=== PATIENT | male | born 1965 | race Hispanic/Latino ===

== ENCOUNTER 2016-09-24 13:43 | Emergency (ER) | payer OTHER ==
[~2016-09-24] VITALS: Ht 182.9 cm; Wt 142.9 kg
[2016-09-24] MEDS ORDERED: NS IV 1000 ML 1,000 ML IV ONE (15:44)
--- NOTE | 2016-09-24 15:53 | ED General ---
General Chief Complaint: -Male Stated Complaint: BACK PAIN//EXCESSIVE URINATING Nursing Triage Note: Pt reports right lower back discomfort since approx feb 2016, pt reports worsening over the last few months and pain unbearable. pt reports frequent episodes of incontinence starting this tuesday. pt reports penile/scotal edema for approx 1 week. pt reports excessive thirst and unable to satisfy it. pt here on vacation visiting family from [place]. Nursing Sepsis Screen: No Definite Risk Source of Information: Patient, Family Exam Limitations: No Limitations History of Present Illness Time Seen by Provider: 15:37 Initial Comments Here with a variety of complaints but includes right lower back pain, markedly increased thirst, markedly increased urination and has recently over the last 2 days had incontinence. Also complains of swelling of the head of the penis which is new. He states he was even unable to retract the foreskin of his penis area and also reports inability to have sexual activity due to the pain of this. Told that he was prediabetic about 7 years ago and has had persistent poor diet and obesity since that time. Strong family history of diabetes and hypertension. States that he works all the time and so drinks energy drinks and Powerade all the time. He is here visiting family from [place], [place]. Timing/Duration: 1 Week Severity: Moderate Associated Systoms: No Chest Pain, No Cough, No Fever/Chills, No Nausea/ Vomiting, No Shortness of Air, No Weakness Allergies and Home Medications Allergies Coded Allergies: meperidine (Verified Allergy, Unknown, 09/24/16) Home Medications No Active Prescriptions or Reported Meds Constitutional: see HPI EENTM: no symptoms reported Respiratory: no symptoms reported Cardiovascular: no symptoms reported Gastrointestinal: No abdominal pain, No nausea, No vomiting Genitourinary: frequency, incontinence Musculoskeletal: see HPI, back pain Skin: no symptoms reported Psychiatric/Neurological: No Symptoms Reported All Other Systems Reviewed Negative Unless Noted: Yes Past Xlvvffv-Ltzkom-Onjura Hx Patient Social History Alcohol Use: Denies Use Recreational Drug Use: No Smoking Status: Former Smoker Recent Foreign Travel: No Contact w/Someone Who Travel: No Recent Infectious Disease Expo: No Recent Hopitalizations: No Immunizations Up To Date Tetanus Booster (TDap): Unknown Seasonal Allergies Seasonal Allergies: No Surgeries HX Surgeries: No Respiratory Respiratory Disorders: Sleep Apnea Endocrine Hx Endocrine Disorders: Yes Endocrine Disorders: Diabetes, Non-Insulin dep Reviewed Nursing Assessment Reviewed/Agree w Nursing PMH: Yes Family Medical History Significant Family History: No Pertinent Family Hx Physical Exam Vital Signs Vital Sign - Last 12Hours 09/24/16 14:13 Temp 97.0 Pulse 85 Resp 18 B/P (MAP) 138/76 Pulse Ox 96 O2 Delivery Room Air Capillary Refill : Less Than 3 Seconds General Appearance: No Apparent Distress, WD/WN, Anxious, Obese HEENT: PERRL/EOMI, Pharynx Normal Neck: Non Tender, Supple Respiratory: Lungs Clear, Normal Breath Sounds Cardiovascular: Regular Rate, Rhythm, No Murmur Gastrointestinal: Non Tender, Soft, Other (obese. Large lipoma to the right side of the mid abdomen.) Genital/Rectal: Other (swollen glans of the penis. I was able to retract foreskin over the glans and then retract back forward. Erythema noted to the glans.) Back: No CVA Tenderness, Other (tender to the mid upper lumbar spine and lateral on the right side.) Extremity: Normal Range of Motion, Non Tender, No Calf Tenderness Neurologic/Psychiatric: Alert, Oriented x3, No Motor/Sensory Deficits, Normal Mood/Affect, Other (able to stand without difficulty. Walks without difficulty. Equal strength bilateral.) Skin: Normal Color, Warm/Dry Progress/Results/Core Measures Results/Orders Lab Results Laboratory Tests Test 09/24/16 15:45 09/24/16 16:11 Range/Units Urine Color YELLOW Urine Clarity CLEAR Urine pH 6 5-9 Urine Specific [place] 1.020 1.016-1.022 Urine Protein 1+ H NEGATIVE Urine Glucose (UA) 4+ H NEGATIVE Urine Ketones 1+ H NEGATIVE Urine Nitrite NEGATIVE NEGATIVE Urine Bilirubin NEGATIVE NEGATIVE Urine Urobilinogen NORMAL NORMAL MG/DL Urine Leukocyte Esterase NEGATIVE NEGATIVE Urine RBC (Auto) NEGATIVE NEGATIVE Urine RBC RARE /HPF Urine WBC NONE /HPF Urine Squamous Epithelial Cells RARE /HPF Urine Crystals NONE /LPF Urine Bacteria NEGATIVE /HPF Urine Casts NONE /LPF Urine Mucus NEGATIVE /LPF Urine Culture Indicated NO White Blood Count 12.8 H 4.3-11.0 10^3/uL Red Blood Count 5.24 4.35-5.85 10^6/uL Hemoglobin 15.8 13.3-17.7 G/DL Hematocrit 45 40-54 % Mean Corpuscular Volume 86 80-99 FL Mean Corpuscular Hemoglobin 30 25-34 PG Mean Corpuscular Hemoglobin Concent 35 32-36 G/DL Red Cell Distribution Width 12.9 10.0-14.5 % Platelet Count 281 130-400 10^3/uL Mean Platelet Volume 10.2 7.4-10.4 FL Neutrophils (%) (Auto) 65 42-75 % Lymphocytes (%) (Auto) 27 12-44 % Monocytes (%) (Auto) 6 0-12 % Eosinophils (%) (Auto) 3 0-10 % Basophils (%) (Auto) 0 0-10 % Neutrophils # (Auto) 8.3 H 1.8-7.8 X 10^3 Lymphocytes # (Auto) 3.4 1.0-4.0 X 10^3 Monocytes # (Auto) 0.7 0.0-1.0 X 10^3 Eosinophils # (Auto) 0.4 H 0.0-0.3 10^3/uL Basophils # (Auto) 0.0 0.0-0.1 10^3/uL Sodium Level 137 135-145 MMOL/L Potassium Level 4.0 3.6-5.0 MMOL/L Chloride Level 103 98-107 MMOL/L Carbon Dioxide Level 21 21-32 MMOL/L Anion Gap 13 5-14 MMOL/L Blood Urea Nitrogen 13 7-18 MG/DL Creatinine 0.82 0.60-1.30 MG/DL Estimat Glomerular Filtration Rate > 60 BUN/Creatinine Ratio 16 0-20 Glucose Level 303 H 70-105 MG/DL Glucometer 285 H 70-110 MG/DL Calcium Level 9.3 8.5-10.1 MG/DL Total Bilirubin 0.5 0.1-1.0 MG/DL Aspartate Amino Transf (AST/SGOT) 22 5-34 U/L Alanine Aminotransferase (ALT/SGPT) 43 0-55 U/L Alkaline Phosphatase 118 40-136 U/L Total Protein 7.6 6.4-8.2 GM/DL Albumin 4.2 3.2-4.5 GM/DL My Orders Orders - CRISTINA ANDRES MD Cbc With Automated Diff (09/24/16 15:44) Comprehensive Metabolic Panel (09/24/16 15:44) Ua Culture If Indicated (09/24/16 15:44) Saline Lock/Iv-Start (09/24/16 15:44) Ns Iv 1000 Ml (Sodium Chloride 0.9%) (09/24/16 15:44) Accucheck Stat ONCE (09/24/16 15:44) Ct Lumbar Spine Wo (09/24/16 15:44) Hemoglobin A1c (09/24/16 17:44) Hydrocodone/Apap 7.5/325 Tab (Lortab 7. (09/24/16 17:55) Diflucan 150mg Po (09/24/16 17:55) Medications Given in ED Current Medications Medications Dose Ordered Sig/Jm Route Start Time Stop Time Status Last Admin Dose Admin Sodium Chloride 1,000 ml @ 0 mls/hr Q0M ONCE IV 09/24/16 15:44 09/24/16 15:47 DC 09/24/16 16:13 0 MLS/HR Vital Signs/I&O Vital Sign - Last 12Hours 09/24/16 14:13 Temp 97.0 Pulse 85 Resp 18 B/P (MAP) 138/76 Pulse Ox 96 O2 Delivery Room Air Blood Pressure Mean: 96 Progress Note : Progress Note Seen and evaluated. IV, labs, UA, fingerstick blood sugar, normal saline 1 L bolus and lumbar CT ordered. Monitor patient. 1750: Findings as noted. Patient does have diabetes. No renal dysfunction noted. We will initiate metformin treatment as outpatient and have him follow-up with his doctor back in [place], [place] within 2 weeks. Patient instructed on increasing intake of water and of the significant need for follow-up with his Dr. due to the possibility of kidney dysfunction or liver dysfunction after starting this new medicine. Patient verbalize understanding. Also instructed to monitor and adjust his diet. Discharged home with return precautions. Patient verbalize understanding instructions and agreement with plan. Diagnostic Imaging Diagonstic Imaging: CT Plain Films/CT/US/NM/MRI: other (lumbar spine) Comments NAME: [facility] REC#: [id number] PT STATUS: REG ER : 1965 PHYSICIAN: CRISTINA ANDRES MD ADMIT DATE: 09/24/16/ER Signed Date of Exam: 09/24/16 CT LUMBAR SPINE WO PROCEDURE: CT lumbar spine without contrast. TECHNIQUE: Multiple contiguous axial images were obtained through the lumbar spine without the use of intravenous contrast. Sagittal and coronal reformations were then performed. INDICATION: Chronic back pain. Progressively worsening. COMPARISON: None available. FINDINGS: No fracture or traumatic malalignment of the lumbar spine. Endplates demonstrate no destruction to suggest discitis osteomyelitis. No foci of significant spinal stenosis or foraminal narrowing by non-myelogram CT. Intervertebral disc space heights are fairly well preserved. There is minimal disc bulging in the lower lumbar spine. Mild degenerative changes of the SI joints. No evidence of sacral insufficiency fracture. Facet osteoarthritis is greatest at L5-S1 and on the right. IMPRESSION: 1. No fracture or traumatic malalignment of the lumbar spine. 2. No evidence of discitis-osteomyelitis. 3. Degenerative changes in the lumbar spine are greatest at the lumbosacral junction with small disc bulge and right-sided facet osteoarthritis. Dictated by: Dictated on workstation # [id number] Dict: 09/24/16 1609 Trans: 09/24/161702 Interpreted by: HUMPHREY DOSS MD Electronically signed by: HUMPHREY DOSS MD 09/24/161702 Departure Impression Impression: Primary Impression: Stoney Additional Impressions: New onset type 2 diabetes mellitus Lumbar strain Qualified Codes: S39.012A - Strain of muscle, fascia and tendon of lower back , initial encounter Disposition: 01 HOME, SELF-CARE Condition: Stable Departure-Patient Inst. Decision time for Depature: 17:59 Referrals: NO,LOCAL PHYSICIAN (PCP/Family) Primary Care Physician Patient Instructions: Balanitis (DC), Diabetes Type 2 (DC), Lumbar Muscle Strain (DC), The ABCs of Diabetes Add. Discharge Instructions: All discharge instructions reviewed with patient and/or family. Voiced understanding. You have been found to have new onset diabetes. You will be started on a medication to assist in controlling your blood sugars. It is vitally important that you drink plenty of water while taking this medicine as it can cause problems with both your kidneys and liver in some people but is also effective at controlling blood sugars. It is important you follow-up with your doctor within 2 weeks for recheck including laboratory evaluation and diabetes education. You will also need blood sugar monitoring device and you can discuss this with your doctor. Return for worse pain, fever, vomiting, weakness , breathing problems or other concerns as needed. Scripts Hydrocodone/Acetaminophen (Hydrocodon-Acetaminoph 7.5-325) 1 Each Tablet 1 EACH PO Q6H, #14 TAB 0 Refills Prov: CRISTINA ANDRES MD 09/24/16 Cyclobenzaprine HCl (Cyclobenzaprine HCl) 10 Mg Tablet 10 MG PO Q8H Y for SPASMS, #15 TAB 0 Refills Prov: CRISTINA ANDRES MD 09/24/16 Metformin HCl (Metformin HCl) 500 Mg Tablet 500 MG PO BID, #49 TAB 0 Refills start 1 tablet daily for one week and then take one tablet twice daily thereafter Prov: CRISTINA ANDRES MD 09/24/16 CRISTINA ANDRES MD Sep 24, 2016 15:53
[2016-09-24 16:04] LABS: BILIRUBIN,URINE NEGATIVE (NEGATIVE); KETONES,URINE 1+ (NEGATIVE); LEUKOCYTE ESTERASE ,URINE NEGATIVE (NEGATIVE); NITRITE,URINE NEGATIVE (NEGATIVE); PH,URINE 6 (5-9); PROTEIN,URINE 1+ (NEGATIVE); UROBILINOGEN,URINE NORMAL (NORMAL)
--- NOTE | 2016-09-24 16:14 | Diagnostic Imaging Report ---
PROCEDURE: CT lumbar spine without contrast. TECHNIQUE: Multiple contiguous axial images were obtained through the lumbar spine without the use of intravenous contrast. Sagittal and coronal reformations were then performed. INDICATION: Chronic back pain. Progressively worsening. COMPARISON: None available. FINDINGS: No fracture or traumatic malalignment of the lumbar spine. Endplates demonstrate no destruction to suggest discitis osteomyelitis. No foci of significant spinal stenosis or foraminal narrowing by non-myelogram CT. Intervertebral disc space heights are fairly well preserved. There is minimal disc bulging in the lower lumbar spine. Mild degenerative changes of the SI joints. No evidence of sacral insufficiency fracture. Facet osteoarthritis is greatest at L5-S1 and on the right. IMPRESSION: 1. No fracture or traumatic malalignment of the lumbar spine. 2. No evidence of discitis-osteomyelitis. 3. Degenerative changes in the lumbar spine are greatest at the lumbosacral junction with small disc bulge and right-sided facet osteoarthritis. Dictated by: Dictated on workstation # [id number]
[2016-09-24 16:21] LABS: SQUAMOUS EPITHELIAL CELL,UR RARE /HPF
[2016-09-24 16:21] LABS: BASOPHILS % (AUTO) 0 % (0-10); EOSINOPHILS # (AUTO) 0.4 10^3/uL (0.0-0.3); EOSINOPHILS % (AUTO) 3 % (0-10); LYMPHOCYTES # (AUTO) 3.4 X 10^3 (1.0-4.0); LYMPHOCYTES % (AUTO) 27 % (12-44); MEAN CORPUSCULAR HEMOGLOBIN 30 PG (25-34); MEAN CORPUSCULAR HGB CONC 35 G/DL (32-36); MEAN CORPUSCULAR VOLUME 86 FL (80-99); MEAN PLATELET VOLUME 10.2 FL (7.4-10.4); MONOCYTES # (AUTO) 0.7 X 10^3 (0.0-1.0); MONOCYTES % (AUTO) 6 % (0-12); NEUTROPHILS # (AUTO) 8.3 X 10^3 (1.8-7.8); NEUTROPHILS % (AUTO) 65 % (42-75); PLATELET COUNT 281 10^3/uL (130-400); RED BLOOD COUNT 5.24 10^6/uL (4.35-5.85); RED CELL DISTRIBUTION WIDTH 12.9 % (10.0-14.5); WHITE BLOOD COUNT 12.8 10^3/uL (4.3-11.0)
[2016-09-24 16:40] LABS: ALANINE AMINOTRANSFERASE 43 U/L (0-55); ALBUMIN 4.2 GM/DL (3.2-4.5); ANION GAP 13 MMOL/L (5-14); ASPARTATE AMINO TRANSFERASE 22 U/L (5-34); BILIRUBIN,TOTAL 0.5 MG/DL (0.1-1.0); BLOOD UREA NITROGEN 13 MG/DL (7-18); BUN/CREATININE RATIO 16 (0-20); CALCIUM 9.3 MG/DL (8.5-10.1); CARBON DIOXIDE 21 MMOL/L (21-32); CHLORIDE 103 MMOL/L (98-107); CREATININE SERUM 0.82 MG/DL (0.60-1.30); GFR ESTIMATED > 60; GLUCOSE 303 MG/DL (70-105); HEMOLYSIS 16 (-100-29); ICTERUS 0.6 (-100-1.9); LIPEMIA 13 (-100-49); SODIUM 137 MMOL/L (135-145); TOTAL PROTEIN 7.6 GM/DL (6.4-8.2)
[2016-09-24] MEDS ORDERED: HYDROcodone/APAP 7.5 MG/325 MG (LORTAB, LORCET PLUS) TABLET PO STA (17:55)
[2016-09-24] MEDS ORDERED: FLUCONAZOLE 150 MG TABLET (ED ONLY) PO STA (17:55)
[2016-09-24] MEDS ORDERED: CYCL10TA9 PO (18:04)
[2016-09-24] MEDS ORDERED: METF500T4 PO (18:04)
[2016-09-24] MEDS ORDERED: HYDR-3816 PO (18:04)
[2016-09-24 18:22] VITALS: BP 133/74
== END 2016-09-24 18:20 | disposition home or self-care (01) ==
LOC: ER 13:49
DX: S39.012A Strain of muscle, fascia and tendon of lower back, initial encounter (principal); N48.1 Balanitis; E11.9 Type 2 diabetes mellitus without complications; Z87.891 Personal history of nicotine dependence; X58.XXXA Exposure to other specified factors, initial encounter
CPT/HCPCS: 36415; 72131; 80053; 81000; 82962; 83036; 85025